=== PATIENT | male | born 1975 | race Caucasian/White ===

== ENCOUNTER 2021-05-24 21:48 | Outpatient (CLI) | payer BC, SELFPAY ==
[2021-05-24 08:32] LABS: HCT 46.8 % (40.0-50.0); HGB 15.9 g/dL (13.5-17.5); MCH 28.9 pg (27.0-33.0); MCV 85.1 fL (80-95); MPV 10.1 fL (8.0-11.0); Platelet Count 247 10^3/uL (130-400); RDW 11.8 % (11.8-14.1); RDW-SD 36.5 fL; WBC 6.16 10^3/uL (4.4-10.8)
[2021-05-24 10:22] LABS: ALT 39 U/L (16-63); AST 19 U/L (15-37); Albumin 4.3 g/dL (3.4-5.0); Alkaline Phosphatase 69 U/L (46-116); BUN 14 mg/dL (7-18); Bilirubin, Total 0.9 mg/dL (0.2-1.0); Calcium 9.5 mg/dL (8.5-10.1); Chloride 105 mmol/L (98-107); Glucose 91 mg/dL (74-106); Potassium 5.1 mmol/L (3.5-5.1); Sodium 142 mmol/L (136-145); Total Protein 7.1 g/dL (6.4-8.2)
[2021-05-24 10:39] LABS: Calculated LDL 83 mg/dL (<100); Cholesterol 154 mg/dL (<200); HDL Cholesterol 46 mg/dL (40-60); Triglyceride 128 mg/dL (<150)
[2021-05-24 17:21] LABS: PSA, Screening 0.6 ng/mL (0.0-2.5)
[2021-05-29 20:13] LABS: Testosterone, Total 292 ng/dL (240-950)
== END 2021-05-24 21:49 | disposition home or self-care (01) ==
LOC: LBO 21:49
PROVIDERS: PCP Family Medicine; Visit Provider Nurse Practitioner Gerontology
DX: N52.9 Male erectile dysfunction, unspecified (principal)
CPT/HCPCS: 36415; 80053; 80061; 84153; 84403; 85027; 84443

== ENCOUNTER 2021-06-09 03:36 | Outpatient (CLI) | payer BC, SELFPAY ==
[2021-06-13 12:04] LABS: Testosterone, Total 349 ng/dL (240-950)
== END 2021-06-09 03:37 | disposition home or self-care (01) ==
LOC: LBO 03:36
PROVIDERS: PCP Family Medicine; Visit Provider Nurse Practitioner Gerontology
DX: N52.9 Male erectile dysfunction, unspecified (principal); E29.1 Testicular hypofunction
CPT/HCPCS: 36415; 84403

== ENCOUNTER 2023-04-25 03:19 | Outpatient (CLI) | payer BC, SELFPAY ==
[2023-04-26 10:40] LABS: Hepatitis C Ab w Rflx HCV PCR Negative (Negative)
[2023-04-26 10:53] LABS: HIV-1/2 Ag & Ab Screen Negative (Negative)
[2023-04-26 14:39] LABS: Chlamydia Result Negative (Negative); GC Result Negative (Negative)
== END 2023-04-25 03:20 | disposition home or self-care (01) ==
LOC: LBO 03:20
PROVIDERS: PCP Family Medicine; Visit Provider Family Medicine
DX: Z20.2 Contact with and (suspected) exposure to infections with a predominantly sexual mode of transmission (principal); Z11.4 Encounter for screening for human immunodeficiency virus [HIV]; Z00.00 Encounter for general adult medical examination without abnormal findings
CPT/HCPCS: 36415; 86803; 87389; 87491; 87591

== ENCOUNTER 2024-06-12 11:47 | Outpatient (REF) | payer BC, SELFPAY ==
--- NOTE | 2024-06-12 10:40 | SKI_PTH ---
PATIENT: Alan Massey LOC: N U#:[id number] AGE/SX: 49/M ROOM: RE06/12/[address]: Oliva Farley : 1975 BED: DIS: 06/12/2024 SPEC #: [id number] RECD: 06/12/24 15:41 STATUS: NAVDEEP REQ #: [id number] TIFFANIE: 06/12/24 10:[address]: Oliva Farley DEPT: Surgical Specimen RECD BY: Bernadine Crocker Tissues: 1 - SKIN BIOPSY(SHAVE/PUNCH) Procedures: SKIN LEVEL 4 Comments: [id number]
== END 2024-06-12 11:48 | disposition home or self-care (01) ==
LOC: LBN 11:47
PROVIDERS: PCP Family Medicine; Visit Provider Family Medicine
DX: D22.9 Melanocytic nevi, unspecified (principal); Z23 Encounter for immunization
CPT/HCPCS: 88305

== ENCOUNTER 2025-03-10 02:44 | Outpatient (CLI) | payer BC, SELFPAY ==
[2025-03-10 08:02] LABS: Calculated LDL 79 mg/dL (<100); Cholesterol 158 mg/dL (<200); HDL Cholesterol 64 mg/dL (>or=40); Triglyceride 77 mg/dL (<150)
[2025-03-10 18:48] LABS: PSA, Screening 0.3 ng/mL (<=3.5)
== END 2025-03-10 02:45 | disposition home or self-care (01) ==
LOC: LBO 02:44
PROVIDERS: PCP Family Medicine; Visit Provider Family Medicine
DX: Z13.6 Encounter for screening for cardiovascular disorders (principal); Z12.5 Encounter for screening for malignant neoplasm of prostate
CPT/HCPCS: 36415; 80061; 84153